=== PATIENT | male | born 1985 | race African-American/Black ===

== ENCOUNTER 2018-08-09 05:02 | Emergency (ER) | payer MEDICAID ==
[~2018-08-09] VITALS: Ht 165.1 cm; Wt 71.0 kg
[2018-08-09 11:43] VITALS: BP 117/78
== END 2018-08-09 11:34 | disposition home or self-care (01) ==
LOC: ER 05:02
DX: S60.562A Insect bite (nonvenomous) of left hand, initial encounter (principal); W57.XXXA Bitten or stung by nonvenomous insect and other nonvenomous arthropods, initial encounter; Y93.89 Activity, other specified; Y92.89 Other specified places as the place of occurrence of the external cause; F14.10 Cocaine abuse, uncomplicated; F15.10 Other stimulant abuse, uncomplicated; F12.90 Cannabis use, unspecified, uncomplicated; F17.210 Nicotine dependence, cigarettes, uncomplicated
CPT/HCPCS: 99281

== ENCOUNTER 2019-05-09 16:18 | Emergency (ER) | payer MEDICAID, OTHER ==
[~2019-05-09] VITALS: Ht 175.3 cm; Wt 73.0 kg
[2019-05-09] MEDS ORDERED: IBUPROFEN 600MG TABLET PO ONE (19:15)
[2019-05-09 19:29] VITALS: BP 128/82
== END 2019-05-09 19:31 | disposition home or self-care (01) ==
LOC: ER 16:59
DX: L02.31 Cutaneous abscess of buttock (principal); R03.0 Elevated blood-pressure reading, without diagnosis of hypertension
CPT/HCPCS: 99283

== ENCOUNTER 2020-11-25 15:22 | Emergency (ER) | payer OTHER ==
[~2020-11-25] VITALS: Ht 165.1 cm; Wt 78.0 kg
[2020-11-25 15:34] VITALS: BP 128/83
== END 2020-11-25 17:12 | disposition left against medical advice (07) ==
LOC: ER 15:22
DX: Z53.21 Procedure and treatment not carried out due to patient leaving prior to being seen by health care provider (principal)